=== PATIENT | female | born 1940 | race Caucasian/White ===

== ENCOUNTER 2020-03-01 21:04 | Inpatient (IN) | payer OTHER ==
[2020-03-01 21:21] VITALS: BMI 17.6
[2020-03-01] MEDS ORDERED: ACETAMINOPHEN 1000 MG/100 ML VIAL (NON FORMULARY) IVPB ONE (21:24)
[2020-03-01] MEDS ORDERED: ACETAMINOPHEN INJECTION 100 ML IVPB ONE (21:29)
[2020-03-01] MEDS ORDERED: levETIRAcetam 500 MG/5 ML INJECTION VIAL IVPB ONE ×2 (21:31→21:34)
[2020-03-01 21:40] LABS: BASO % 0.6 % (0-2.0); EOS % 0.7 % (0-4.5); HEMATOCRIT 39.7 % (32.4-45.2); HEMOGLOBIN 11.8 GM/dL (10.7-15.3); LYMPH % 10.7 % (8-40); MCH 30.4 pg (25.7-33.7); MCHC 29.8 g/dl (32.0-36.0); MEAN CELL VOLUME 101.8 fl (80-96); MONO % 1.7 % (3.8-10.2); NEUT % 86.3 % (42.8-82.8); PLATELET COUNT 698 K/MM3 (134-434); RDW 16.3 % (11.6-15.6)
[2020-03-01 21:48] LABS: INR 1.04 (0.83-1.09); PROTHROMBIN TIME (PATIENT) 12.3 SEC (9.7-13.0)
[2020-03-01 21:50] LABS: ACTIVATED PTT 50.2 SECONDS (25.2-36.5)
[2020-03-01] MEDS ORDERED: DEXTROSE 50%-WATER - 25 GM/50 ML VIAL IVPUSH ONE ×2 (21:53→22:20)
[2020-03-01] MEDS ORDERED: diazePAM 2.5 MG PEDIATRIC RECTAL APP GEL PR ONE (21:53)
[2020-03-01] MEDS ORDERED: CEFTRIAXONE 1 GM in DEXTROSE 5%-WATER - 50 ML IVPB ONE (21:55)
[2020-03-01 22:16] LABS: ALBUMIN 2.7 g/dl (3.4-5.0); BILIRUBIN,DIRECT 0.1 mg/dL (0.0-0.2); BILIRUBIN,TOTAL 0.4 mg/dL (0.2-1); BLOOD UREA NITROGEN 18.4 mg/dL (7-18); CALCIUM 9.6 mg/dL (8.5-10.1); CREATININE 1.2 mg/dL (0.55-1.3); PLATELET ESTIMATE INCREASED; TOT PROT 7.3 g/dl (6.4-8.2)
[2020-03-01 22:20] LABS: POTASSIUM 6.5 mmol/L (3.5-5.1)
[2020-03-01] MEDS ORDERED: CALCIUM GLUCONATE 10% - 1,000 MG/10 ML VIAL IVPUSH ONE (22:20)
[2020-03-01] MEDS ORDERED: INSULIN REGULAR HUMAN 100 UNITS/ML *VIAL IVPUSH ONE ×2 (22:20→22:24)
[2020-03-01] MEDS ORDERED: CALCIUM GLUCONATE 10% - 1,000 MG/10 ML VIAL ONE (22:35)
[2020-03-01] MEDS ORDERED: CEFTRIAXONE 1 GM/50 ML BAG ONE (22:35)
[2020-03-01 23:03] LABS: PH,URINE 6.5 (5.0-8.0); URINE APPEARANCE TURBID; URINE BILIRUBIN NEGATIVE (NEGATIVE); URINE COLOR YELLOW; URINE KETONE NEGATIVE (NEGATIVE)
[2020-03-01 23:04] LABS: URINE LEUK ESTERASE 1+ (NEGATIVE); URINE NITRITE NEGATIVE (NEGATIVE)
[2020-03-01 23:06] LABS: EPI CELLS 6 /uL (0-25.1); HYALINE CASTS 17 /uL (0-3.1); URINE BACTERIA 8897 /uL (0-1359); URINE GLUCOSE (UA) 2+ (NEGATIVE); URINE PROTEIN 2+ (NEGATIVE); URINE RBC 175 /uL (0-23.9); URINE WBC 698 /uL (0-25.8)
[2020-03-01] MEDS: SODIUM CHLORIDE 1,000 ML IV SCH (23:16)
[2020-03-02] MEDS ORDERED: DEXTROSE 50%-WATER 25 GM/50 ML DISP.SYRIN ONE (00:16)
[2020-03-02] MEDS ORDERED: DEXTROSE 50%-WATER - 25 GM/50 ML VIAL IVPUSH ONE (00:16)
[2020-03-02] MEDS ORDERED: VANCOMYCIN 1 GM in D5W (PRE-DOCKED) 1,000 MG/250 ML IVPB SCH ×2 (01:00→02:05)
[2020-03-02 01:38] LABS: ALBUMIN 2.7 g/dl (3.4-5.0); BILIRUBIN,TOTAL 0.2 mg/dL (0.2-1); BLOOD UREA NITROGEN 16.6 mg/dL (7-18); CALCIUM 8.8 mg/dL (8.5-10.1); CREATININE 0.9 mg/dL (0.55-1.3); POTASSIUM 3.6 mmol/L (3.5-5.1); TOT PROT 6.8 g/dl (6.4-8.2)
[2020-03-02] MEDS ORDERED: HYDROCORTISONE SOD SUCCINATE 100 MG/2 ML VIAL IVPUSH ONE (01:59)
[2020-03-02] MEDS ORDERED: LACTULOSE 20 GM/30 ML UDC (FOR ORAL USE ONLY) PO PRN (02:14)
[2020-03-02] MEDS ORDERED: HYDROCORTISONE SOD SUCCINATE 2 ML ONE (02:37)
[2020-03-02] MEDS ORDERED: PIPERACILLIN/TAZOB 3.375 GM 3.375 GM/50 ML BAG IVPB ONE ×3 (02:38→19:20)
[2020-03-02] MEDS: PIPERACILLIN/TAZOB 3.375 GM 3.375 GM in DEXTROSE 5%-WATER - 50 ML IVPB SCH ×6 (03:09→19:16)
[2020-03-02] MEDS ORDERED: levETIRAcetam 500 MG/5 ML INJECTION VIAL IVPB ONE ×3 (09:19→16:57)
[2020-03-02] MEDS: FERROUS SO4 325 MG TABLET (FP) PO SCH (09:57)
[2020-03-02] MEDS: ASPIRIN COATED 81 MG TABLET.EC PO SCH (09:57)
[2020-03-02] MEDS: ENOXAPARIN NA (PORCINE) 30 MG/0.3 ML DISP.SYRIN SQ SCH (09:58)
[2020-03-02] MEDS ORDERED: DULOXETINE HCL 40 MG PO SCH (10:00)
[2020-03-02] MEDS ORDERED: levETIRAcetam 500 MG/5 ML INJECTION VIAL IVPB SCH (10:00)
[2020-03-02] MEDS ORDERED: LEVOTHYROXINE SODIUM 100 MCG VIAL IVPUSH SCH (10:00)
[2020-03-02] MEDS ORDERED: ENOXAPARIN NA (PORCINE) 40 MG/0.4 ML DISP.SYRIN SQ SCH (10:00)
[2020-03-02 10:29] LABS: HEMATOCRIT 34.4 % (32.4-45.2); HEMOGLOBIN 11.5 GM/dL (10.7-15.3); LYMPH % 1.2 % (8-40); MCH 30.8 pg (25.7-33.7); MCHC 33.3 g/dl (32.0-36.0); MEAN CELL VOLUME 92.4 fl (80-96); MEAN PLT VOLUME 9.4 fl (7.5-11.1); MONO % 1.4 % (3.8-10.2); NEUT % 97.4 % (42.8-82.8); PLATELET COUNT 459 K/MM3 (134-434); RBC 3.72 M/mm3 (3.60-5.2); RDW 14.9 % (11.6-15.6); WHITE BLOOD COUNT 19.5 K/mm3 (4.0-10.0)
[2020-03-02 11:05] LABS: ALBUMIN 2.8 g/dl (3.4-5.0); BILIRUBIN,TOTAL 0.4 mg/dL (0.2-1); BLOOD UREA NITROGEN 13.5 mg/dL (7-18); CALCIUM 8.5 mg/dL (8.5-10.1); CREATININE 0.6 mg/dL (0.55-1.3); PHOSPHOROUS 2.5 mg/dL (2.5-4.9); POTASSIUM 3.7 mmol/L (3.5-5.1)
[2020-03-02] MEDS: HYDROXYCHLOROQUINE SO4 200 MG TABLET (FP) PO SCH ×2 (11:09→22:07)
[2020-03-02 14:24] LABS: ANISOCYTOSIS 0; MACROCYTOSIS 0; PLATELET ESTIMATE INCREASED
[2020-03-02] MEDS ORDERED: LORazepam 2 MG/ML SDV VIAL IVPUSH ONE ×2 (15:15→17:01)
[2020-03-02] MEDS ORDERED: LORazepam 2 MG/ML SDV VIAL ONE ×2 (16:57→17:13)
[2020-03-02] MEDS ORDERED: MIDAZOLAM IN 0.9 % SOD.CHLORID 1 MG/1 ML PLAST..BAG ONE (20:52)
[2020-03-02] MEDS ORDERED: RAPID SEQUENCE INTUBATION KIT NR ONE (20:54)
[2020-03-02] MEDS ORDERED: ETOMIDATE 20 MG/10 ML AMPUL IVPUSH ONE (21:32)
[2020-03-02] MEDS ORDERED: SUCCINYLCHOLINE CHLORIDE 200 MG/10 ML VIAL IVPUSH ONE (21:32)
[2020-03-02] MEDS: MIDAZOLAM 100 MG in SODIUM CHLORIDE 100 ML IVPB SCH (22:05)
[2020-03-02] MEDS: SENNOSIDES/DOCUSATE COMBO (SENNA PLUS) TABLET (UD) PO SCH (22:07)
[2020-03-02] MEDS: MIRTAZAPINE 15 MG TABLET (FP) PO SCH (22:07)
[2020-03-02] MEDS: ATORVASTATIN CA 80 MG TABLET (FP) PO SCH (22:07)
[2020-03-02] MEDS: EZETIMIBE 10 MG TABLET (FP) PO SCH (22:08)
[2020-03-03] MEDS: levETIRAcetam 500 MG/5 ML INJECTION VIAL IVPB SCH ×2 (06:32→14:30)
[2020-03-03] MEDS: SODIUM CHLORIDE 1,000 ML IV SCH (06:32)
[2020-03-03 07:09] LABS: ARTERIAL BLD GAS O2 SATURATION 96.4 % (95-98); ARTERIAL BLOOD GAS BASE EXCESS -6.2 mmol/L (-2-2); ARTERIAL BLOOD GAS PCO2 47.5 mmHg (35-45); ARTERIAL BLOOD GAS PO2 125 mmHg (80-100); ARTERIAL BLOOD GAS pH 7.26 (7.35-7.45)
[2020-03-03 07:10] LABS: ALLENS TEST POSITIVE
[2020-03-03] MEDS ORDERED: ASPIRIN 81 MG CHEWABLE TABLETS ONE (12:35)
[2020-03-03] MEDS ORDERED: FERROUS SO4 325 MG TABLET (FP) ONE (12:35)
[2020-03-03] MEDS ORDERED: HYDROXYCHLOROQUINE SO4 200 MG TABLET (FP) ONE (12:35)
[2020-03-03] MEDS ORDERED: levETIRAcetam 500 MG/5 ML INJECTION VIAL IVPB ONE (12:35)
[2020-03-03] MEDS ORDERED: ENOXAPARIN NA (PORCINE) 30 MG/0.3 ML DISP.SYRIN SQ ONE (12:36)
[2020-03-03] MEDS: ASPIRIN COATED 81 MG TABLET.EC PO SCH (15:00)
[2020-03-03] MEDS: ENOXAPARIN NA (PORCINE) 30 MG/0.3 ML DISP.SYRIN SQ SCH (15:00)
[2020-03-03] MEDS: HYDROXYCHLOROQUINE SO4 200 MG TABLET (FP) PO SCH (15:00)
[2020-03-03] MEDS: FERROUS SO4 325 MG TABLET (FP) PO SCH (15:00)
[2020-03-03] MEDS: PIPERACILLIN/TAZOB 3.375 GM 3.375 GM in DEXTROSE 5%-WATER - 50 ML IVPB SCH ×2 (15:00→23:00)
[2020-03-03] MEDS ORDERED: MIDAZOLAM IN 0.9 % SOD.CHLORID 1 MG/1 ML PLAST..BAG ONE ×2 (15:13→23:35)
[2020-03-03] MEDS: LEVOTHYROXINE SODIUM 100 MCG VIAL IVPUSH SCH (16:00)
[2020-03-03] MEDS ORDERED: ACETAMINOPHEN INJECTION 100 ML IVPB ONE (16:13)
[2020-03-03] MEDS ORDERED: ACETAMINOPHEN 1000 MG/100 ML VIAL (NON FORMULARY) IVPB ONE (16:17)
[2020-03-03] MEDS: SENNOSIDES/DOCUSATE COMBO (SENNA PLUS) TABLET (UD) PO SCH (23:00)
[2020-03-04] MEDS ORDERED: levETIRAcetam 500 MG/5 ML INJECTION VIAL IVPB ONE ×2 (00:05→09:49)
[2020-03-04] MEDS ORDERED: ATORVASTATIN CA 40 MG TABLET (FP) ONE ×2 (00:05→20:53)
[2020-03-04] MEDS ORDERED: HEPARIN NA (PORCINE) 5,000 UNITS/ML 1ML VIAL ONE ×4 (00:06→18:00)
[2020-03-04] MEDS ORDERED: MIRTAZAPINE 15 MG TABLET (FP) ONE (00:06)
[2020-03-04] MEDS ORDERED: HYDROXYCHLOROQUINE 200 MG/8 ML ORAL SUSPENSION ONE (00:13)
[2020-03-04] MEDS: ATORVASTATIN CA 80 MG TABLET (FP) PO SCH ×2 (00:26→23:16)
[2020-03-04] MEDS: levETIRAcetam 500 MG/5 ML INJECTION VIAL IVPB SCH ×3 (00:26→22:00)
[2020-03-04] MEDS: HEPARIN NA (PORCINE) 5,000 UNITS/ML 1ML VIAL SQ SCH ×3 (00:26→21:19)
[2020-03-04] MEDS: EZETIMIBE 10 MG TABLET (FP) PO SCH ×2 (00:26→22:00)
[2020-03-04] MEDS: MIRTAZAPINE 15 MG TABLET (FP) PO SCH ×2 (00:26→22:30)
[2020-03-04] MEDS: HYDROXYCHLOROQUINE SO4 200 MG TABLET (FP) PO SCH ×2 (00:26→10:04)
[2020-03-04 02:00] LABS: ARTERIAL BLD GAS O2 SATURATION 97.9 % (95-98); ARTERIAL BLOOD GAS BASE EXCESS -2.8 mmol/L (-2-2); ARTERIAL BLOOD GAS PCO2 41.4 mmHg (35-45); ARTERIAL BLOOD GAS PO2 176 mmHg (80-100); ARTERIAL BLOOD GAS pH 7.35 (7.35-7.45)
[2020-03-04 02:08] LABS: ALLENS TEST POSITIVE
[2020-03-04] MEDS ORDERED: PIPERACILLIN/TAZOB 3.375 GM 3.375 GM/50 ML BAG IVPB ONE (04:28)
[2020-03-04 07:08] LABS: ARTERIAL BLD GAS O2 SATURATION 97.5 % (95-98); ARTERIAL BLOOD GAS BASE EXCESS -1.2 mmol/L (-2-2); ARTERIAL BLOOD GAS PCO2 44.8 mmHg (35-45); ARTERIAL BLOOD GAS PO2 134 mmHg (80-100); ARTERIAL BLOOD GAS pH 7.35 (7.35-7.45)
[2020-03-04 07:42] LABS: ALLENS TEST POSITIVE
[2020-03-04 07:43] LABS: HEMATOCRIT 34.2 % (32.4-45.2); HEMOGLOBIN 10.9 GM/dL (10.7-15.3); MCH 30.4 pg (25.7-33.7); MEAN PLT VOLUME 9.8 fl (7.5-11.1); PLATELET COUNT 280 K/MM3 (134-434); RDW 16.4 % (11.6-15.6); WHITE BLOOD COUNT 20.4 K/mm3 (4.0-10.0)
[2020-03-04 08:20] LABS: ALBUMIN 2.4 g/dl (3.4-5.0); BILIRUBIN,TOTAL 0.6 mg/dL (0.2-1); BLOOD UREA NITROGEN 36.2 mg/dL (7-18); CALCIUM 8.9 mg/dL (8.5-10.1); CREATININE 1.6 mg/dL (0.55-1.3); MAGNESIUM 2.5 mg/dL (1.8-2.4); PHOSPHOROUS 4.1 mg/dL (2.5-4.9); TOT PROT 6.6 g/dl (6.4-8.2)
[2020-03-04] MEDS ORDERED: ASPIRIN COATED 81 MG TABLET.EC ONE (09:50)
[2020-03-04] MEDS ORDERED: FERROUS SO4 325 MG TABLET (FP) ONE (09:50)
[2020-03-04] MEDS ORDERED: HYDROXYCHLOROQUINE SO4 200 MG TABLET (FP) ONE (09:50)
[2020-03-04] MEDS ORDERED: PANTOPRAZOLE SODIUM 40 MG/100 ML BAG IVPB ONE (09:51)
[2020-03-04] MEDS ORDERED: ACETAMINOPHEN 325 MG TABLET (FP) ONE ×2 (09:56→18:00)
[2020-03-04] MEDS: ASPIRIN COATED 81 MG TABLET.EC PO SCH (10:03)
[2020-03-04] MEDS: FERROUS SO4 325 MG TABLET (FP) PO SCH (10:04)
[2020-03-04] MEDS: PANTOPRAZOLE SODIUM 40 MG VIAL IVPUSH SCH (10:04)
[2020-03-04] MEDS: LEVOTHYROXINE SODIUM 100 MCG VIAL IVPUSH SCH (10:30)
[2020-03-04] MEDS: ACETAMINOPHEN 325 MG TABLET (FP) PO PRN ×2 (11:05→17:27)
[2020-03-04] MEDS ORDERED: MIDAZOLAM 100MG/100ML DRIP - DO NOT USE FOR BILLING ONE (13:50)
[2020-03-04] MEDS: MIDAZOLAM 100 MG in SODIUM CHLORIDE 100 ML IVPB SCH (14:00)
[2020-03-04] MEDS: SENNOSIDES/DOCUSATE COMBO (SENNA PLUS) TABLET (UD) PO SCH (22:00)
[2020-03-04] MEDS ORDERED: HYDROXYCHLOROQUINE 200 MG/8 ML ORAL SUSPENSION PO SCH (22:05)
[2020-03-04] MEDS: HYDROXYCHLOROQUINE 200 MG/8 ML ORAL SUSPENSION PO SCH (23:55)
[2020-03-05 07:11] LABS: HEMATOCRIT 35.2 % (32.4-45.2); HEMOGLOBIN 11.4 GM/dL (10.7-15.3); MCH 30.4 pg (25.7-33.7); MCHC 32.4 g/dl (32.0-36.0); MEAN PLT VOLUME 9.7 fl (7.5-11.1); PLATELET COUNT 234 K/MM3 (134-434); RBC 3.74 M/mm3 (3.60-5.2); RDW 15.9 % (11.6-15.6); WHITE BLOOD COUNT 10.5 K/mm3 (4.0-10.0)
[2020-03-05] MEDS: MIDAZOLAM 100 MG in SODIUM CHLORIDE 100 ML IVPB SCH (07:30)
[2020-03-05 07:37] LABS: ALBUMIN 2.2 g/dl (3.4-5.0); BILIRUBIN,TOTAL 0.5 mg/dL (0.2-1); BLOOD UREA NITROGEN 50.5 mg/dL (7-18); CALCIUM 8.7 mg/dL (8.5-10.1); CREATININE 1.4 mg/dL (0.55-1.3); MAGNESIUM 2.5 mg/dL (1.8-2.4); PHOSPHOROUS 3.2 mg/dL (2.5-4.9); POTASSIUM 4.3 mmol/L (3.5-5.1); TOT PROT 6.3 g/dl (6.4-8.2)
[2020-03-05] MEDS: ASPIRIN COATED 81 MG TABLET.EC PO SCH (10:09)
[2020-03-05] MEDS: FERROUS SO4 325 MG TABLET (FP) PO SCH (10:10)
[2020-03-05] MEDS: levETIRAcetam 500 MG/5 ML INJECTION VIAL IVPB SCH ×2 (10:10→22:47)
[2020-03-05] MEDS: PANTOPRAZOLE SODIUM 40 MG VIAL IVPUSH SCH (10:10)
[2020-03-05] MEDS: LEVOTHYROXINE SODIUM 100 MCG VIAL IVPUSH SCH (10:10)
[2020-03-05 10:33] LABS: ARTERIAL BLOOD GAS PCO2 43.9 mmHg (35-45); ARTERIAL BLOOD GAS pH 7.36 (7.35-7.45)
[2020-03-05 10:34] LABS: ALLENS TEST POSITIVE; ARTERIAL BLD GAS O2 SATURATION 94.9 % (95-98); ARTERIAL BLOOD GAS BASE EXCESS -1.6 mmol/L (-2-2)
[2020-03-05] MEDS: HYDROXYCHLOROQUINE SO4 200 MG TABLET (FP) PO SCH (11:20)
[2020-03-05] MEDS: SODIUM CHLORIDE 1,000 ML IV SCH (11:28)
[2020-03-05] MEDS: HEPARIN NA (PORCINE) 5,000 UNITS/ML 1ML VIAL SQ SCH ×4 (11:28→23:47)
[2020-03-05] MEDS: HYDROXYCHLOROQUINE 200 MG/8 ML ORAL SUSPENSION PO SCH ×2 (11:30→22:46)
[2020-03-05] MEDS: NOREPINEPHRINE D5W PREMIX 16,000 MCG/500 ML BAG IVPB SCH (14:57)
[2020-03-05] MEDS: PIPERACILLIN/TAZOB 3.375 GM 3.375 GM in DEXTROSE 5%-WATER - 50 ML IVPB SCH (19:06)
[2020-03-05] MEDS: ATORVASTATIN CA 80 MG TABLET (FP) PO SCH (22:25)
[2020-03-05] MEDS: SENNOSIDES/DOCUSATE COMBO (SENNA PLUS) TABLET (UD) PO SCH (22:46)
[2020-03-05] MEDS: MIRTAZAPINE 15 MG TABLET (FP) PO SCH (22:46)
[2020-03-05] MEDS: EZETIMIBE 10 MG TABLET (FP) PO SCH (22:46)
[2020-03-06] MEDS: PIPERACILLIN/TAZOB 3.375 GM 3.375 GM in DEXTROSE 5%-WATER - 50 ML IVPB SCH ×4 (02:24→17:23)
[2020-03-06] MEDS: HEPARIN NA (PORCINE) 5,000 UNITS/ML 1ML VIAL SQ SCH ×3 (06:24→22:00)
[2020-03-06 07:11] LABS: ALLENS TEST POSITIVE; ARTERIAL BLD GAS O2 SATURATION 79.1 % (95-98); ARTERIAL BLOOD GAS BASE EXCESS -5.1 mmol/L (-2-2); ARTERIAL BLOOD GAS PO2 53.4 mmHg (80-100); ARTERIAL BLOOD GAS pH 7.27 (7.35-7.45)
[2020-03-06 07:17] LABS: HEMATOCRIT 28.3 % (32.4-45.2); HEMOGLOBIN 9.4 GM/dL (10.7-15.3); MCHC 33.1 g/dl (32.0-36.0); MEAN CELL VOLUME 93.7 fl (80-96); MEAN PLT VOLUME 9.8 fl (7.5-11.1); PLATELET COUNT 283 K/MM3 (134-434); RBC 3.02 M/mm3 (3.60-5.2); WHITE BLOOD COUNT 8.9 K/mm3 (4.0-10.0)
[2020-03-06] MEDS: SODIUM CHLORIDE 1,000 ML IV SCH ×2 (09:51→23:00)
[2020-03-06] MEDS: ASPIRIN COATED 81 MG TABLET.EC PO SCH (09:59)
[2020-03-06] MEDS: levETIRAcetam 500 MG/5 ML INJECTION VIAL IVPB SCH ×2 (09:59→21:50)
[2020-03-06] MEDS: HYDROXYCHLOROQUINE 200 MG/8 ML ORAL SUSPENSION PO SCH ×2 (09:59→22:51)
[2020-03-06] MEDS: PANTOPRAZOLE SODIUM 40 MG VIAL IVPUSH SCH (09:59)
[2020-03-06] MEDS: FERROUS SO4 325 MG TABLET (FP) PO SCH (09:59)
[2020-03-06] MEDS: LEVOTHYROXINE SODIUM 100 MCG VIAL IVPUSH SCH (10:00)
[2020-03-06 11:06] LABS: ALBUMIN 1.9 g/dl (3.4-5.0); BILIRUBIN,TOTAL 0.3 mg/dL (0.2-1); BLOOD UREA NITROGEN 78.3 mg/dL (7-18); CREATININE 2.2 mg/dL (0.55-1.3); MAGNESIUM 2.8 mg/dL (1.8-2.4); PHOSPHOROUS 4.7 mg/dL (2.5-4.9); POTASSIUM 4.1 mmol/L (3.5-5.1); TOT PROT 5.8 g/dl (6.4-8.2)
[2020-03-06] MEDS: NOREPINEPHRINE D5W PREMIX 16,000 MCG/500 ML BAG IVPB SCH (14:34)
[2020-03-06] MEDS: EZETIMIBE 10 MG TABLET (FP) PO SCH (22:00)
[2020-03-06] MEDS: SENNOSIDES/DOCUSATE COMBO (SENNA PLUS) TABLET (UD) PO SCH (22:00)
[2020-03-06] MEDS: ATORVASTATIN CA 80 MG TABLET (FP) PO SCH (22:00)
[2020-03-06] MEDS: MIRTAZAPINE 15 MG TABLET (FP) PO SCH (22:00)
[2020-03-07] MEDS: PIPERACILLIN/TAZOB 3.375 GM 3.375 GM in DEXTROSE 5%-WATER - 50 ML IVPB SCH ×3 (02:49→18:36)
[2020-03-07] MEDS: HEPARIN NA (PORCINE) 5,000 UNITS/ML 1ML VIAL SQ SCH ×3 (06:49→23:55)
[2020-03-07 07:59] LABS: BASO % 0.1 % (0-2.0); HEMATOCRIT 25.5 % (32.4-45.2); HEMOGLOBIN 8.1 GM/dL (10.7-15.3); LYMPH % 5.1 % (8-40); MCH 29.9 pg (25.7-33.7); MCHC 31.9 g/dl (32.0-36.0); MEAN CELL VOLUME 93.9 fl (80-96); MEAN PLT VOLUME 9.6 fl (7.5-11.1); MONO % 4.9 % (3.8-10.2); NEUT % 89.9 % (42.8-82.8); PLATELET COUNT 315 K/MM3 (134-434); RBC 2.71 M/mm3 (3.60-5.2); RDW 16.1 % (11.6-15.6)
[2020-03-07 08:56] LABS: ALBUMIN 1.7 g/dl (3.4-5.0); BILIRUBIN,TOTAL 0.2 mg/dL (0.2-1); CALCIUM 7.8 mg/dL (8.5-10.1); CREATININE 3.2 mg/dL (0.55-1.3); MAGNESIUM 2.7 mg/dL (1.8-2.4); PHOSPHOROUS 5.3 mg/dL (2.5-4.9); POTASSIUM 4.6 mmol/L (3.5-5.1); TOT PROT 5.8 g/dl (6.4-8.2)
[2020-03-07] MEDS: PANTOPRAZOLE SODIUM 40 MG VIAL IVPUSH SCH (10:32)
[2020-03-07] MEDS: levETIRAcetam 500 MG/5 ML INJECTION VIAL IVPB SCH (10:32)
[2020-03-07] MEDS: ASPIRIN COATED 81 MG TABLET.EC PO SCH (10:32)
[2020-03-07] MEDS: FERROUS SO4 325 MG TABLET (FP) PO SCH (10:32)
[2020-03-07] MEDS: LEVOTHYROXINE SODIUM 100 MCG VIAL IVPUSH SCH (10:33)
[2020-03-07] MEDS: LACTATED RINGERS SOLUTION 1,000 ML/1,000 ML INFUS.BAG IV SCH (10:35)
[2020-03-07] MEDS: NOREPINEPHRINE D5W PREMIX 16,000 MCG/500 ML BAG IVPB SCH (13:38)
[2020-03-07] MEDS: MORPHINE SULFATE/0.9% NACL/PF 100 MG/100 ML BAG IVPB SCH (18:10)
[2020-03-07] MEDS ORDERED: PROPOFOL 1,000,000 MCG/100 ML VIAL IVPB SCH (21:45)
[2020-03-08] MEDS: SENNOSIDES/DOCUSATE COMBO (SENNA PLUS) TABLET (UD) PO SCH ×2 (00:05→22:15)
[2020-03-08] MEDS: ATORVASTATIN CA 80 MG TABLET (FP) PO SCH ×2 (00:05→22:15)
[2020-03-08] MEDS: EZETIMIBE 10 MG TABLET (FP) PO SCH ×2 (00:05→22:15)
[2020-03-08] MEDS: levETIRAcetam 500 MG/5 ML INJECTION VIAL IVPB SCH ×2 (00:05→09:53)
[2020-03-08] MEDS: PIPERACILLIN/TAZOB 3.375 GM 3.375 GM in DEXTROSE 5%-WATER - 50 ML IVPB SCH ×3 (03:45→18:27)
[2020-03-08] MEDS: HEPARIN NA (PORCINE) 5,000 UNITS/ML 1ML VIAL SQ SCH ×3 (06:34→22:15)
[2020-03-08] MEDS ORDERED: DEXTROSE 50%-WATER - 25 GM/50 ML VIAL IVPUSH ONE ×2 (06:53)
[2020-03-08 08:22] LABS: BASO % 0.4 % (0-2.0); HEMATOCRIT 20.9 % (32.4-45.2); LYMPH % 4.9 % (8-40); MCH 30.5 pg (25.7-33.7); MEAN CELL VOLUME 92.3 fl (80-96); MEAN PLT VOLUME 9.5 fl (7.5-11.1); MONO % 5.4 % (3.8-10.2); NEUT % 89.3 % (42.8-82.8); PLATELET COUNT 280 K/MM3 (134-434); RBC 2.26 M/mm3 (3.60-5.2); RDW 16.4 % (11.6-15.6); WHITE BLOOD COUNT 10.8 K/mm3 (4.0-10.0)
[2020-03-08 09:09] LABS: HEMOGLOBIN 6.9 GM/dL (10.7-15.3)
[2020-03-08] MEDS: MIRTAZAPINE 15 MG TABLET (FP) PO SCH (09:14)
[2020-03-08] MEDS: LEVOTHYROXINE SODIUM 100 MCG VIAL IVPUSH SCH (09:39)
[2020-03-08] MEDS: PANTOPRAZOLE SODIUM 40 MG VIAL IVPUSH SCH (09:39)
[2020-03-08] MEDS: FERROUS SO4 325 MG TABLET (FP) PO SCH (09:53)
[2020-03-08] MEDS: LACTATED RINGERS SOLUTION 1,000 ML/1,000 ML INFUS.BAG IV SCH (09:53)
[2020-03-08] MEDS: ASPIRIN COATED 81 MG TABLET.EC PO SCH (09:53)
[2020-03-08 10:20] LABS: ALBUMIN 1.6 g/dl (3.4-5.0); BILIRUBIN,TOTAL 0.3 mg/dL (0.2-1); CALCIUM 7.2 mg/dL (8.5-10.1); CREATININE 3.9 mg/dL (0.55-1.3); POTASSIUM 4.5 mmol/L (3.5-5.1); TOT PROT 4.9 g/dl (6.4-8.2)
[2020-03-08] MEDS: levETIRAcetam 500 MG/5 ML ORAL SOLUTION (UNIT-DOSE CUPS) PO SCH ×2 (11:46→22:15)
[2020-03-08] MEDS: NOREPINEPHRINE D5W PREMIX 16,000 MCG/500 ML BAG IVPB SCH (14:39)
[2020-03-08] MEDS: MORPHINE SULFATE/0.9% NACL/PF 100 MG/100 ML BAG IVPB SCH (16:02)
[2020-03-08] MEDS ORDERED: ATORVASTATIN CA 40 MG TABLET (FP) ONE (21:57)
[2020-03-09] MEDS: PIPERACILLIN/TAZOB 3.375 GM 3.375 GM in DEXTROSE 5%-WATER - 50 ML IVPB SCH ×2 (02:10→10:09)
[2020-03-09] MEDS: HEPARIN NA (PORCINE) 5,000 UNITS/ML 1ML VIAL SQ SCH (06:10)
[2020-03-09] MEDS: MIRTAZAPINE 15 MG TABLET (FP) PO SCH (07:25)
[2020-03-09] MEDS: levETIRAcetam 500 MG/5 ML ORAL SOLUTION (UNIT-DOSE CUPS) PO SCH (10:00)
[2020-03-09] MEDS: ASPIRIN COATED 81 MG TABLET.EC PO SCH (10:00)
[2020-03-09] MEDS: PANTOPRAZOLE SODIUM 40 MG VIAL IVPUSH SCH (10:00)
[2020-03-09] MEDS: FERROUS SO4 325 MG TABLET (FP) PO SCH (10:00)
[2020-03-09] MEDS: LEVOTHYROXINE SODIUM 100 MCG VIAL IVPUSH SCH (10:30)
[2020-03-09] MEDS: NOREPINEPHRINE D5W PREMIX 16,000 MCG/500 ML BAG IVPB SCH (13:21)
[2020-03-09 14:33] VITALS: BP 69/49; PULSE 80; TEMP 98.1
== END 2020-03-09 16:40 | disposition expired | DRG 870 ==
LOC: JER 21:04 → JERBED 21:18 → JICU-4 03-04 19:36
PROVIDERS: ADMIT Internal Medicine; ATTEND Internal Medicine Pulmonary Disease
PROC: 8E0ZXY6 Isolation (ICD-10-PCS; 2020-03-01)
PROC: 5A1955Z Respiratory Ventilation, Greater than 96 Consecutive Hours (ICD-10-PCS; principal; 2020-03-04)
PROC: 0BH17EZ Insertion of Endotracheal Airway into Trachea, Via Natural or Artificial Opening (ICD-10-PCS; 2020-03-04)
PROC: 02HV33Z Insertion of Infusion Device into Superior Vena Cava, Percutaneous Approach (ICD-10-PCS; 2020-03-05)
DX: A41.9 Sepsis, unspecified organism (principal); J96.00 Acute respiratory failure, unspecified whether with hypoxia or hypercapnia; J12.89 Other viral pneumonia; E87.2 Acidosis; E46 Unspecified protein-calorie malnutrition; C90.00 Multiple myeloma not having achieved remission; J98.11 Atelectasis; N30.00 Acute cystitis without hematuria; I24.8 Other forms of acute ischemic heart disease; R64 Cachexia; Z68.1 Body mass index [BMI] 19.9 or less, adult; I50.30 Unspecified diastolic (congestive) heart failure; N17.9 Acute kidney failure, unspecified; I69.391 Dysphagia following cerebral infarction; R13.10 Dysphagia, unspecified; D64.9 Anemia, unspecified; E03.9 Hypothyroidism, unspecified; F32.9 Major depressive disorder, single episode, unspecified; E78.5 Hyperlipidemia, unspecified; E87.5 Hyperkalemia; D47.3 Essential (hemorrhagic) thrombocythemia; E88.09 Other disorders of plasma-protein metabolism, not elsewhere classified; M54.5 Low back pain; E16.2 Hypoglycemia, unspecified; G93.89 Other specified disorders of brain; I25.10 Atherosclerotic heart disease of native coronary artery without angina pectoris; G40.909 Epilepsy, unspecified, not intractable, without status epilepticus; I11.0 Hypertensive heart disease with heart failure
CPT/HCPCS: 36415; 36600; 70450-TC; 71045-TC-FY; 71250-TC; 80048; 80053; 81003; 82248; 82550; 82728; 82803; 82962; 83036; 83605; 83615; 83735; 84100; 84439; 84443; 84484; 85025; 85027; 85610; 85730; 86140; 87040; 87086; 87186; 87899; 93005; 93010; 94002; 99291; J0131; J1644; U0002